=== PATIENT | male | born 1960 | race Caucasian/White ===

== ENCOUNTER 2018-05-23 17:03 | Emergency (ER) | payer MEDICAID ==
[~2018-05-23] VITALS: Ht 175.3 cm; Wt 102.7 kg
[2018-05-23 17:07] VITALS: BP 161/88; Ht 175.3 cm; Wt 102.7 kg
== END 2018-05-23 18:50 | disposition home or self-care (01) ==
LOC: D.ER 17:03
DX: F10.129 Alcohol abuse with intoxication, unspecified (principal); Z86.79 Personal history of other diseases of the circulatory system; Z86.11 Personal history of tuberculosis; B20 Human immunodeficiency virus [HIV] disease; F17.200 Nicotine dependence, unspecified, uncomplicated

== ENCOUNTER 2019-06-02 18:59 | Emergency (ER) | payer MEDICAID ==
[~2019-06-02] VITALS: Ht 175.3 cm; Wt 102.7 kg
[2019-06-02 19:07] VITALS: BP 134/70; Ht 175.3 cm; Wt 102.7 kg
[2019-06-02] MEDS ORDERED: BP MEDICATIONS (19:09)
[2019-06-02] MEDS ORDERED: HIV MEDICATIONS (19:09)
[2019-06-02] MEDS ORDERED: CLEOCIN HCL300 MG PO (19:46)
[2019-06-02 20:10] LABS: BASOPHILS 0.5 % (0-2); HEMATOCRIT 37.2 % (42.0-54.0); HEMOGLOBIN 13.3 g/dL (13.5-17.5); IMMATURE GRANULOCYTES 0.3 % (0-5); LYMPHOCYTES 13.8 % (15-50); MCH 37.5 pg (26.0-34.0); MCHC 35.8 g/dL (31.0-37.0); MCV 104.8 fL (80.0-100.0); MEAN PLATELET VOLUME 10.1 fL (7.4-10.4); MONOCYTES 13.3 % (2-11); NEUTROPHILS 68.1 % (40-80); PLATELET COUNT 158 10x3/uL (130-400); RBC 3.55 10x6/uL (4.20-6.10); RDW 14.5 % (11.5-14.5); WBC 6.2 10x3/uL (4.8-10.8)
[2019-06-02 20:34] LABS: ALBUMIN 3.1 g/dL (3.4-5.0); ANION GAP 14.7 mmol/L (8-16); BILIRUBIN - TOTAL 0.89 mg/dL (0.2-1.3); CALCIUM 8.4 mg/dL (8.5-10.1); CARBON DIOXIDE 22.6 mmol/L (21.0-32.0); CREATININE - SERUM 1.1 mg/dL (0.6-1.3); POTASSIUM - SERUM 3.3 mmol/L (3.5-5.1)
== END 2019-06-02 21:15 | disposition home or self-care (01) ==
LOC: D.ER 18:59
PROVIDERS: Family Medicine
DX: L03.116 Cellulitis of left lower limb (principal)